=== PATIENT | female | born 1955 | race Two or more races ===

== ENCOUNTER 2020-06-13 00:38 | Inpatient (IN) | payer MEDICARE ==
[~2020-06-13] VITALS: Ht 170.2 cm; Wt 86.6 kg
[2020-06-13] MEDS ORDERED: PIPERACILLIN/TAZ 3.375G PREMIX 50 ML IV ONE (01:00)
[2020-06-13] MEDS ORDERED: SODIUM CHLORIDE 0.9% 1000ML BAG (SEPSIS BOLUS) IV ONE (01:00)
[2020-06-13 01:55] LABS: EOSINOPHILS % 0.1 % (0.0-5.0); LYMPHOCYTES % 28.6 % (20.0-50.0); MEAN CORPUSCULAR VOLUME 99.2 fL (81.0-99.0); MEAN PLATELET VOLUME 8.2 fl (7.4-10.4); MONOCYTES % 10.1 % (2.0-8.0); NEUTROPHILS % 60.2 % (40.0-76.0); PLATELET 175 x1000/uL (130-400); RED CELL DISTRIBUTION WIDTH 16.8 % (11.6-14.6)
[2020-06-13 01:58] LABS: CHLORIDE 108 mEq/L (98-107)
[2020-06-13 02:01] LABS: HEMATOCRIT. 20.8 % (36.0-48.0); HEMOGLOBIN. 6.5 g/dL (12.0-16.0); INR 1.2; PROTHROMBIN TIME 12.4 sec (9.6-11.0)
[2020-06-13 02:14] LABS: BG BASE EXCESS -0.4 mmol/L (-2.0-2.0); BG CARBOXYHEMOGLOBIN 2.1 % (0.5-1.5); BG DEOXYHEMOGLOBIN 10.6 % (0.0-5.0); BG FRACTION INSPIRED OXYGEN 36; BG HCO3 ACT 26.3 mmol/L (22.0-26.0); BG METHEMOGLOBIN 0.3 % (0.0-1.5); BG OXYGEN SATURATION 89.1 % (92.0-98.5); BG PH 7.298 (7.350-7.450); BG PO2 63.2 mmHg (75.0-100.0); BG SAMPLE SITE LEFT BRACHIAL; BG VENT MODE NASAL CANNULA
[2020-06-13] MEDS ORDERED: POTASSIUM CHLORIDE 20MEQ TABLET SR PO NR (03:30)
[2020-06-13 03:47] LABS: CLARITY URINE CLEAR (CLEAR); COLOR URINE YELLOW (YELLOW); KETONES URINE NEGATIVE (NEGATIVE); LEUKOCYTE ESTERASE URINE NEGATIVE (NEGATIVE); NITRITE URINE NEGATIVE (NEGATIVE); OCCULT BLOOD URINE NEGATIVE (NEGATIVE); PH URINE 6.5 (4.5-8.0); PROTEIN URINE 1+ (NEGATIVE); SPECIFIC GRAVITY URINE 1.008 (1.005-1.030); UROBILINOGEN URINE 0.2 E.U./dL (0.2-1.0)
[2020-06-13] MEDS ORDERED: FUROSEMIDE 40MG/4ML VIAL IVP ONE (04:30)
[2020-06-13] MEDS ORDERED: LORAZEPAM 2MG/ML CPJ ONE (04:34)
[2020-06-13] MEDS ORDERED: FENTANYL CITRATE/PF 1,000 MCG in SODIUM CHLORIDE 0.9% 80 ML IV PRN ×2 (05:15→07:00)
[2020-06-13] MEDS ORDERED: LORAZEPAM 2MG/ML CPJ IV ONE (05:15)
[2020-06-13] MEDS ORDERED: MIDAZOLAM HCL 100 MG in DEXT 5% WATER 80 ML IV ONE (05:15)
[2020-06-13] MEDS ORDERED: VANCOMYCIN 1 G PREMIX 200 ML IV SCH (05:30)
[2020-06-13] MEDS ORDERED: LORAZEPAM 2MG/ML CPJ IV PRN (07:00)
[2020-06-13] MEDS ORDERED: GUAIFENESIN 200MG/10ML SUGAR FREE UDC PO PRN (07:00)
[2020-06-13] MEDS ORDERED: DIPHENHYDRAMINE 50MG/ML VIAL IV PRN (07:00)
[2020-06-13] MEDS ORDERED: DEXTROSE 50% WATER 50ML SYRINGE IV PRN (07:00)
[2020-06-13] MEDS ORDERED: DOCUSATE SODIUM 100MG CAPSULE PO PRN (07:00)
[2020-06-13] MEDS ORDERED: ONDANSETRON HCL 4MG/2ML INJ IV PRN (07:00)
[2020-06-13] MEDS ORDERED: CLONIDINE 0.1MG TABLET PO PRN (07:00)
[2020-06-13] MEDS ORDERED: MIDAZOLAM HCL 100 MG in DEXT 5% WATER 80 ML IV PRN (07:00)
[2020-06-13] MEDS ORDERED: MAGNESIUM/ALUMINUM HYDROXIDE/SIMETHICONE 30ML UDC PO PRN (07:00)
[2020-06-13] MEDS ORDERED: HYDRALAZINE 20MG/ML VIAL IV PRN (07:00)
[2020-06-13] MEDS ORDERED: IPRATROPIUM/ALBUTEROL 0.5-3(2.5)MG/3ML NEB NEB PRN (07:00)
[2020-06-13] MEDS ORDERED: NOREPINEPHRINE 8MG/250ML PMX 250 ML IV PRN (08:15)
[2020-06-13] MEDS: INSULIN LISPRO 100 UNITS/ML SUBCUT SCH ×4 (09:00→21:00)
[2020-06-13 09:27] LABS: MEAN CORPUSCULAR HEMOGLOBIN 30.9 pg (28.0-32.0); MEAN CORPUSCULAR VOLUME 99.1 fL (81.0-99.0); PLATELET 158 x1000/uL (130-400)
[2020-06-13 09:29] LABS: HEMATOCRIT 19.8 % (36.0-48.0); HEMOGLOBIN 6.2 g/dL (12.0-16.0)
[2020-06-13] MEDS: BLOOD SUGAR DIAGNOSTIC STRIP TEST SCH ×4 (09:56→21:03)
[2020-06-13] MEDS ORDERED: PANTOPRAZOLE SODIUM 40 MG/VIAL IV SCH (10:30)
[2020-06-13] MEDS: PIPERACILLIN/TAZ 3.375G PREMIX 50 ML IV SCH ×3 (10:44→23:45)
[2020-06-13 12:28] LABS: TOTAL IRON BINDING CAPACITY 120 ug/dL (250-450)
[2020-06-13 13:00] LABS: PHOSPHORUS 3.1 mg/dL (2.5-4.9)
[2020-06-13 13:01] LABS: VITAMIN B12 SERUM 1041 pg/mL (211-911)
[2020-06-13 13:07] LABS: FERRITIN 1436 ng/mL (10-291)
[2020-06-13] MEDS: SODIUM CHLORIDE 0.9% INJ 3ML FLUSH IVF SCH ×2 (20:19→22:00)
[2020-06-14] MEDS: ACETAMINOPHEN 325MG TABLET PO PRN ×3 (03:52→19:49)
[2020-06-14 04:36] LABS: HEMATOCRIT. 27.1 % (36.0-48.0); HEMOGLOBIN. 9.1 g/dL (12.0-16.0); MEAN CORPUSCULAR HEMOGLOBIN 30.2 pg (28.0-32.0); PLATELET 154 x1000/uL (130-400); RED BLOOD CELL COUNT 3.01 mill/uL (4.2-5.4); RED CELL DISTRIBUTION WIDTH 22.1 % (11.6-14.6)
[2020-06-14 04:57] LABS: CHLORIDE 109 mEq/L (98-107)
[2020-06-14] MEDS: SODIUM CHLORIDE 0.9% INJ 3ML FLUSH IVF SCH ×3 (05:54→20:35)
[2020-06-14] MEDS: BLOOD SUGAR DIAGNOSTIC STRIP TEST SCH ×4 (06:17→21:52)
[2020-06-14] MEDS: INSULIN LISPRO 100 UNITS/ML SUBCUT SCH ×4 (06:17→21:00)
[2020-06-14] MEDS ORDERED: PIPERACILLIN/TAZOBACTAM 2.25 G in DEXTROSE 5% WATER 50 ML IV SCH (09:00)
[2020-06-14 09:08] LABS: ATYPICAL LYMPHOCYTES 1; PLATELET ESTIMATE NORMAL
[2020-06-14] MEDS: PANTOPRAZOLE SODIUM 40 MG/VIAL IV SCH (09:32)
[2020-06-14 09:36] LABS: BG BASE EXCESS -7.4 mmol/L (-2.0-2.0); BG CARBOXYHEMOGLOBIN 1.1 % (0.5-1.5); BG DEOXYHEMOGLOBIN 6.6 % (0.0-5.0); BG FRACTION INSPIRED OXYGEN 100; BG HCO3 ACT 16.7 mmol/L (22.0-26.0); BG METHEMOGLOBIN 0.3 % (0.0-1.5); BG OXYGEN SATURATION 93.3 % (92.0-98.5); BG PCO2 28.3 mmHg (35.0-45.0); BG PH 7.388 (7.350-7.450); BG PO2 71.1 mmHg (75.0-100.0); BG SAMPLE SITE RIGHT RADIAL; BG TIDAL VOLUME(mL) 500 mL; BG TOTAL HEMOGLOBIN 8.3 g/dL (12.0-18.0); BG VENT MODE VENT - A/C; BG VENT RATE 18 set
[2020-06-14] MEDS ORDERED: FENTANYL CITRATE/PF 1,000 MCG in SODIUM CHLORIDE 0.9% 80 ML IV PRN (10:08)
[2020-06-14] MEDS ORDERED: NOREPINEPHRINE 8MG/250ML PMX 250 ML IV PRN (10:15)
[2020-06-14] MEDS ORDERED: KCL 10MEQ/50ML PREMIX 50 ML IV SCH (11:00)
[2020-06-14] MEDS ORDERED: VANCOMYCIN 1 G PREMIX 200 ML IV SCH (14:00)
[2020-06-14] MEDS ORDERED: METRONIDAZOLE 500MG TABLET PO SCH (15:00)
[2020-06-14] MEDS ORDERED: NOREPINEPHRINE 8 MG in DEXT 5% WATER 242 ML IV SCH (16:00)
[2020-06-14] MEDS ORDERED: NOREPINEPHRINE 8 MG in DEXT 5% WATER 242 ML IV PRN (16:15)
[2020-06-14] MEDS: CEFEPIME 1,000 MG in DEXTROSE 5% WATER 50 ML IV SCH (20:09)
[2020-06-14] MEDS: METRONIDAZOLE 500 MG PREMIX 100 ML IV SCH (22:28)
[2020-06-15] VITALS (48 sets, daily range): BP systolic 73–145; BP diastolic 44–78
[2020-06-15] MEDS ORDERED: NOREPINEPHRINE 8MG/250ML PMX 250ML IV PRN (00:15)
[2020-06-15] MEDS ORDERED: NOREPINEPHRINE 8MG/250ML PMX 250 ML IV ONE (00:16)
[2020-06-15 02:19] LABS: CHLORIDE 110 mEq/L (98-107)
[2020-06-15 02:24] LABS: HEMATOCRIT. 29.3 % (36.0-48.0); HEMOGLOBIN. 9.6 g/dL (12.0-16.0); MEAN CORPUSCULAR HEMOGLOBIN 29.6 pg (28.0-32.0); MEAN CORPUSCULAR VOLUME 90.4 fL (81.0-99.0); MEAN PLATELET VOLUME 8.4 fl (7.4-10.4); PLATELET 193 x1000/uL (130-400); RED BLOOD CELL COUNT 3.24 mill/uL (4.2-5.4); RED CELL DISTRIBUTION WIDTH 22.2 % (11.6-14.6)
[2020-06-15 03:23] LABS: HEPATITIS A AB IGM NEGATIVE (NEGATIVE)
[2020-06-15 03:51] LABS: FERRITIN 2107 ng/mL (10-291)
[2020-06-15 03:53] LABS: HEPATITIS B SURFACE ANTIGEN NEGATIVE
[2020-06-15] MEDS: BLOOD SUGAR DIAGNOSTIC STRIP TEST SCH ×4 (08:30→23:14)
[2020-06-15] MEDS: SODIUM CHLORIDE 0.9% INJ 3ML FLUSH IVF SCH ×3 (08:31→21:31)
[2020-06-15] MEDS: INSULIN LISPRO 100 UNITS/ML SUBCUT SCH ×4 (08:39→23:14)
[2020-06-15 09:06] LABS: FOLATE HEMATOCRIT 18.7 % (34.0-46.6)
[2020-06-15] MEDS: PANTOPRAZOLE SODIUM 40 MG/VIAL IV SCH (09:21)
[2020-06-15 09:30] LABS: BG BASE EXCESS -5.3 mmol/L (-2.0-2.0); BG CARBOXYHEMOGLOBIN 0.1 % (0.5-1.5); BG DEOXYHEMOGLOBIN 1.3 % (0.0-5.0); BG FRACTION INSPIRED OXYGEN 100; BG HCO3 ACT 19.5 mmol/L (22.0-26.0); BG METHEMOGLOBIN 0.3 % (0.0-1.5); BG OXYGEN SATURATION 98.7 % (92.0-98.5); BG OXYHEMOGLOBIN 98.3 % (94.0-97.0); BG PCO2 35.3 mmHg (35.0-45.0); BG PO2 163.2 mmHg (75.0-100.0); BG SAMPLE SITE RIGHT BRACHIAL; BG TIDAL VOLUME(mL) 500 mL; BG TOTAL HEMOGLOBIN 9.9 g/dL (12.0-18.0); BG VENT MODE VENT - A/C; BG VENT RATE 14 set
[2020-06-15] MEDS: METRONIDAZOLE 500 MG PREMIX 100 ML IV SCH ×2 (10:31→20:17)
[2020-06-15] MEDS: ACETAMINOPHEN 325MG TABLET PO PRN (10:32)
[2020-06-15] MEDS ORDERED: FENTANYL CITRATE/PF 1,000 MCG in SODIUM CHLORIDE 0.9% 80 ML IV PRN (11:45)
[2020-06-15] MEDS ORDERED: MIDAZOLAM HCL 100 MG in DEXT 5% WATER 80 ML IV PRN (11:45)
[2020-06-15 13:21] LABS: PLATELET ESTIMATE NORMAL
[2020-06-15] MEDS: DEXAMETHASONE 10 MG/ML VIAL IV SCH (13:40)
[2020-06-15] MEDS ORDERED: DEXTROSE 50% WATER 50ML SYRINGE IV PRN ×2 (14:00)
[2020-06-15] MEDS: NOREPINEPHRINE 16 MG in DEXT 5% WATER 484 ML IV PRN ×2 (15:08→20:12)
[2020-06-15] MEDS: CEFEPIME 1,000 MG in DEXTROSE 5% WATER 50 ML IV SCH (15:41)
[2020-06-15] MEDS ORDERED: POLYETHYLENE GLYCOL 3350 (17GM) 1 DOSE PACK PO NR (16:00)
[2020-06-15] MEDS: IPRATROPIUM/ALBUTEROL 0.5-3(2.5)MG/3ML NEB HHN SCH ×2 (16:31→20:35)
[2020-06-15 18:23] LABS: HEMOGLOBIN. 9.4 g/dL (12.0-16.0); MEAN CORPUSCULAR HEMOGLOBIN 29.1 pg (28.0-32.0); MEAN CORPUSCULAR VOLUME 92.5 fL (81.0-99.0); MEAN PLATELET VOLUME 8.6 fl (7.4-10.4); PLATELET 185 x1000/uL (130-400); RED BLOOD CELL COUNT 3.24 mill/uL (4.2-5.4)
[2020-06-15 19:05] LABS: PLATELET ESTIMATE NORMAL
[2020-06-16] VITALS (101 sets, daily range): BP systolic 89–146; BP diastolic 44–82
[2020-06-16] MEDS: IPRATROPIUM/ALBUTEROL 0.5-3(2.5)MG/3ML NEB HHN SCH ×6 (00:30→20:20)
[2020-06-16] MEDS: NOREPINEPHRINE 16 MG in DEXT 5% WATER 484 ML IV PRN ×3 (03:50→20:02)
[2020-06-16 04:43] LABS: HEMOGLOBIN. 8.8 g/dL (12.0-16.0); MEAN CORPUSCULAR HEMOGLOBIN 29.5 pg (28.0-32.0); MEAN CORPUSCULAR VOLUME 90.9 fL (81.0-99.0); PLATELET 192 x1000/uL (130-400); RED BLOOD CELL COUNT 2.97 mill/uL (4.2-5.4); RED CELL DISTRIBUTION WIDTH 22.9 % (11.6-14.6)
[2020-06-16] MEDS: INSULIN LISPRO 100 UNITS/ML SUBCUT SCH ×4 (05:18→23:27)
[2020-06-16] MEDS: SODIUM CHLORIDE 0.9% INJ 3ML FLUSH IVF SCH ×3 (05:18→21:45)
[2020-06-16] MEDS: BLOOD SUGAR DIAGNOSTIC STRIP TEST SCH ×4 (05:18→23:27)
[2020-06-16 07:38] LABS: PLATELET ESTIMATE NORMAL
[2020-06-16 08:08] LABS: A/G RATIO 0.6 (0.7-1.7); ALBUMIN 1.9 g/dL (2.9-4.4); ALPHA-1-GLOBULIN 0.3 g/dL (0.0-0.4); ALPHA-2-GLOBULIN 0.5 g/dL (0.4-1.0); BETA GLOBULIN 0.7 g/dL (0.7-1.3); GAMMA GLOBULINS 1.7 g/dL (0.4-1.8); GLOBULIN TOTAL 3.2 g/dL (2.2-3.9); M-SPIKE Not Observed g/dL (Not Observed); TOTAL PROTEIN SERUM 5.1 g/dL (6.0-8.5)
[2020-06-16 08:26] LABS: BG BASE EXCESS -10.1 mmol/L (-2.0-2.0); BG CARBOXYHEMOGLOBIN 0.1 % (0.5-1.5); BG DEOXYHEMOGLOBIN 1.1 % (0.0-5.0); BG HCO3 ACT 16.3 mmol/L (22.0-26.0); BG METHEMOGLOBIN 0.1 % (0.0-1.5); BG OXYGEN SATURATION 98.9 % (92.0-98.5); BG OXYHEMOGLOBIN 98.7 % (94.0-97.0); BG PCO2 37.8 mmHg (35.0-45.0); BG PH 7.253 (7.350-7.450); BG PO2 154.5 mmHg (75.0-100.0); BG SAMPLE SITE RIGHT BRACHIAL; BG TIDAL VOLUME(mL) 500 mL; BG TOTAL HEMOGLOBIN 9.1 g/dL (12.0-18.0); BG VENT MODE VENT- PRVC; BG VENT RATE 14 set
[2020-06-16] MEDS: METRONIDAZOLE 500 MG PREMIX 100 ML IV SCH ×2 (09:03→20:01)
[2020-06-16] MEDS: PANTOPRAZOLE SODIUM 40 MG/VIAL IV SCH (09:03)
[2020-06-16] MEDS: DEXAMETHASONE 10 MG/ML VIAL IV SCH (09:03)
[2020-06-16 12:53] LABS: BG BASE EXCESS -6.9 mmol/L (-2.0-2.0); BG CARBOXYHEMOGLOBIN 0.5 % (0.5-1.5); BG DEOXYHEMOGLOBIN 1.3 % (0.0-5.0); BG FRACTION INSPIRED OXYGEN 100; BG HCO3 ACT 18.6 mmol/L (22.0-26.0); BG METHEMOGLOBIN 0.1 % (0.0-1.5); BG OXYGEN SATURATION 98.7 % (92.0-98.5); BG OXYHEMOGLOBIN 98.1 % (94.0-97.0); BG PCO2 37.5 mmHg (35.0-45.0); BG PH 7.314 (7.350-7.450); BG PO2 148.2 mmHg (75.0-100.0); BG SAMPLE SITE RIGHT BRACHIAL; BG TIDAL VOLUME(mL) 500 mL; BG TOTAL HEMOGLOBIN 9.4 g/dL (12.0-18.0); BG VENT MODE VENT- PRVC; BG VENT RATE 14 set
[2020-06-16 14:08] LABS: FOLATE RBC 2711 ng/mL (>498)
[2020-06-16] MEDS: CEFEPIME 1,000 MG in DEXTROSE 5% WATER 50 ML IV SCH (14:44)
[2020-06-17] VITALS (118 sets, daily range): BP systolic 45–175; BP diastolic 28–90
[2020-06-17] MEDS: IPRATROPIUM/ALBUTEROL 0.5-3(2.5)MG/3ML NEB HHN SCH ×6 (00:05→20:17)
[2020-06-17] MEDS: INSULIN LISPRO 100 UNITS/ML SUBCUT SCH ×3 (05:30→18:59)
[2020-06-17] MEDS: SODIUM CHLORIDE 0.9% INJ 3ML FLUSH IVF SCH ×3 (05:31→21:45)
[2020-06-17] MEDS: BLOOD SUGAR DIAGNOSTIC STRIP TEST SCH ×4 (05:31→23:54)
[2020-06-17 06:50] LABS: HEMATOCRIT. 25.1 % (36.0-48.0); HEMOGLOBIN. 8.1 g/dL (12.0-16.0); MEAN CORPUSCULAR HEMOGLOBIN 29.3 pg (28.0-32.0); MEAN CORPUSCULAR VOLUME 90.2 fL (81.0-99.0); MEAN PLATELET VOLUME 9.6 fl (7.4-10.4); PLATELET 174 x1000/uL (130-400); RED BLOOD CELL COUNT 2.78 mill/uL (4.2-5.4); RED CELL DISTRIBUTION WIDTH 22.4 % (11.6-14.6)
[2020-06-17 07:56] LABS: NUCLEATED RED BLOOD CELLS 1 /100 WBC; PLATELET ESTIMATE NORMAL
[2020-06-17] MEDS: NOREPINEPHRINE 16 MG in DEXT 5% WATER 484 ML IV PRN ×3 (09:00→21:00)
[2020-06-17] MEDS: METRONIDAZOLE 500 MG PREMIX 100 ML IV SCH ×2 (09:34→21:43)
[2020-06-17] MEDS: PANTOPRAZOLE SODIUM 40 MG/VIAL IV SCH (09:34)
[2020-06-17] MEDS: DEXAMETHASONE 10 MG/ML VIAL IV SCH (09:34)
[2020-06-17] MEDS ORDERED: VANCOMYCIN 750 MG PREMIX 150 ML IV SCH (10:00)
[2020-06-17] MEDS: MIDODRINE HCL 5MG TABLET PO SCH ×3 (10:25→21:45)
[2020-06-17] MEDS ORDERED: LACTULOSE 20G/30ML UDC PO NR (10:30)
[2020-06-17 13:19] LABS: BG BASE EXCESS -8.3 mmol/L (-2.0-2.0); BG CARBOXYHEMOGLOBIN 1.5 % (0.5-1.5); BG DEOXYHEMOGLOBIN 12.7 % (0.0-5.0); BG FRACTION INSPIRED OXYGEN 70; BG METHEMOGLOBIN 0.3 % (0.0-1.5); BG OXYGEN SATURATION 87.1 % (92.0-98.5); BG OXYHEMOGLOBIN 85.5 % (94.0-97.0); BG PCO2 33.6 mmHg (35.0-45.0); BG PH 7.321 (7.350-7.450); BG PO2 51.1 mmHg (75.0-100.0); BG SAMPLE SITE RIGHT BRACHIAL; BG TIDAL VOLUME(mL) 500 mL; BG TOTAL HEMOGLOBIN 9.1 g/dL (12.0-18.0); BG VENT MODE VENT-PRVC; BG VENT RATE 14 set
[2020-06-17] MEDS ORDERED: LORAZEPAM 2MG/ML CPJ IV NR (13:30)
[2020-06-17] MEDS ORDERED: MIDODRINE HCL 5MG TABLET PO SCH (14:00)
[2020-06-17] MEDS ORDERED: PHENYLEPHRINE 100 MG in DEXT 5% WATER 240 ML IV PRN (14:30)
[2020-06-17] MEDS: CEFEPIME 1,000 MG in DEXTROSE 5% WATER 50 ML IV SCH (15:50)
[2020-06-17 17:28] LABS: PHOSPHORUS 2.5 mg/dL (2.5-4.9)
[2020-06-17] MEDS ORDERED: PHENYLEPHRINE 200 MG in DEXT 5% WATER 480 ML IV PRN (22:30)
[2020-06-17] MEDS ORDERED: NOREPINEPHRINE 32 MG in DEXT 5% WATER 468 ML IV PRN (22:30)
[2020-06-17] MEDS ORDERED: HEPARIN SODIUM 1,000 UNIT/1ML VIAL IV NR ×2 (22:48)
[2020-06-18] MEDS ORDERED: VASOPRESSIN 20 UNIT in SODIUM CHLORIDE 0.9% 99 ML IV PRN ×2
== END 2020-06-17 23:48 | disposition expired | DRG 870 ==
LOC: ER 00:38 → MICUSO 05:16
PROVIDERS: ADMIT Internal Medicine; ATTEND Internal Medicine
PROC: 5A1955Z Respiratory Ventilation, Greater than 96 Consecutive Hours (ICD-10-PCS; principal; 2020-06-13)
PROC: 0BH17EZ Insertion of Endotracheal Airway into Trachea, Via Natural or Artificial Opening (ICD-10-PCS; 2020-06-13)
PROC: 30233N1 Transfusion of Nonautologous Red Blood Cells into Peripheral Vein, Percutaneous Approach (ICD-10-PCS; 2020-06-13)
PROC: 5A1D70Z Performance of Urinary Filtration, Intermittent, Less than 6 Hours Per Day (ICD-10-PCS; 2020-06-14)
PROC: 30233K1 Transfusion of Nonautologous Frozen Plasma into Peripheral Vein, Percutaneous Approach (ICD-10-PCS; 2020-06-16)
PROC: 5A1D70Z Performance of Urinary Filtration, Intermittent, Less than 6 Hours Per Day (ICD-10-PCS; 2020-06-16)
PROC: 5A12012 Performance of Cardiac Output, Single, Manual (ICD-10-PCS; 2020-06-17)
PROC: 5A1D70Z Performance of Urinary Filtration, Intermittent, Less than 6 Hours Per Day (ICD-10-PCS; 2020-06-17)
DX: A41.89 Other specified sepsis (principal); U07.1 COVID-19; J12.89 Other viral pneumonia; J96.01 Acute respiratory failure with hypoxia; N18.6 End stage renal disease; E43 Unspecified severe protein-calorie malnutrition; R65.21 Severe sepsis with septic shock; G92 Toxic encephalopathy; I13.2 Hypertensive heart and chronic kidney disease with heart failure and with stage 5 chronic kidney disease, or end stage renal disease; N17.9 Acute kidney failure, unspecified; E87.2 Acidosis; D62 Acute posthemorrhagic anemia; I82.511 Chronic embolism and thrombosis of right femoral vein; E11.22 Type 2 diabetes mellitus with diabetic chronic kidney disease; E66.9 Obesity, unspecified; E87.6 Hypokalemia; K74.60 Unspecified cirrhosis of liver; F31.9 Bipolar disorder, unspecified; E87.5 Hyperkalemia; D53.9 Nutritional anemia, unspecified; F20.9 Schizophrenia, unspecified; E78.5 Hyperlipidemia, unspecified; E03.9 Hypothyroidism, unspecified; R26.89 Other abnormalities of gait and mobility; F41.9 Anxiety disorder, unspecified; D50.9 Iron deficiency anemia, unspecified; J44.9 Chronic obstructive pulmonary disease, unspecified; E11.42 Type 2 diabetes mellitus with diabetic polyneuropathy; I46.9 Cardiac arrest, cause unspecified; D72.810 Lymphocytopenia; E11.65 Type 2 diabetes mellitus with hyperglycemia; B97.89 Other viral agents as the cause of diseases classified elsewhere; K59.00 Constipation, unspecified; I50.9 Heart failure, unspecified; Z88.5 Allergy status to narcotic agent; Z68.29 Body mass index [BMI] 29.0-29.9, adult; Z99.2 Dependence on renal dialysis
CPT/HCPCS: 36415; 36600; 71045; 76700; 80048; 80053; 80076; 80202; 81003; 82140; 82375; 82550; 82607; 82728; 82747; 82805; 82962; 83036; 83540; 83550; 83605; 83615; 83735; 83880; 84100; 84145; 84155; 84165; 84484; 85014; 85025; 85027; 85379; 86141; 86705; 86709; 86803; 86850; 86870; 86900; 86920; 86927; 87070; 87077; 87186; 87340; 87635; 93005; 93970; 94002; 94003; 94640; 96374; 99285; C9113; J0692; J1100; J1644; J1815; J1940; J2060; J2250; J2370; J2543; J3010; J3370; J3480; J3490; J7030; J7050; J7060; P9016; P9017